=== PATIENT | male | born 1990 | race Caucasian/White ===

== ENCOUNTER 2025-02-01 23:09 | Emergency (ER) | payer SELFPAY ==
[2025-02-01 23:15] VITALS: BP 131/73; PULSE 88; RESP 16; TEMP 36.7; O2SAT 99
--- NOTE | 2025-02-02 00:33 | CTR_ITS ---
PROCEDURE INFORMATION: Exam: CT Head Without Contrast Exam date and time: 02/02/2025 12:38 AM Age: 34 years old Clinical indication: Injury or trauma; Fall; Blunt trauma (contusions or hematomas); Additional info: Headache post trauma (3 days ago), nausea, fall TECHNIQUE: Imaging protocol: Computed tomography of the head without contrast. Radiation optimization: All CT scans at this facility use at least one of these dose optimization techniques: automated exposure control; mA and/or kV adjustment per patient size (includes targeted exams where dose is matched to clinical indication); or iterative reconstruction. COMPARISON: No relevant prior studies available. RADIATION DOSE METRICS: Total DLP (mGy-cm): 2453.63 FINDINGS: Brain: No acute intracranial hemorrhage, cerebral edema, or midline shift. Cerebral ventricles: No hydrocephalus. Paranasal sinuses: There is no acute sinusitis. Mastoid air cells: Visualized mastoid air cells are well aerated. Orbital cavities: The visualized orbits appear unremarkable. Bones: Unremarkable. No acute fracture. Soft tissues: Unremarkable. CT/CT head wo con* [id number] IMPRESSION: No acute intracranial abnormality.
[2025-02-02] MEDS: diphenhydrAMINE 50 mg/mL SDV 1mL IVP (00:59)
[2025-02-02] MEDS: sodium chloride 0.9% 1,000 ML 999 ML IV (00:59)
[2025-02-02] MEDS: prochlorperazine 10 mg/2 mL Inj IV (00:59)
[2025-02-02 03:23] VITALS: BP 118/76; PULSE 76; O2SAT 98
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
== END 2025-02-02 03:25 | disposition home or self-care (01) ==
PROVIDERS: Emergency Provider Student in an Organized Health Care Education/Training Program
DX: S06.0X0A Concussion without loss of consciousness, initial encounter (principal); W01.198A Fall on same level from slipping, tripping and stumbling with subsequent striking against other object, initial encounter
CPT/HCPCS: 70450; 96374; 96375; 99285; J0780; J1200; J7030

== ENCOUNTER 2025-02-27 21:30 | Emergency (ER) | payer SELFPAY ==
[2025-02-27 21:40] VITALS: BP 102/63; PULSE 55; RESP 17; TEMP 36.7; O2SAT 100; BMI 18.3
--- OUTSIDE RECORDS SUMMARY | 2025-02-27 21:40 | XMS_ITS | Clinical Summary ---
Author Organization [facility] Address [address] [place]: Epic Prelude ADT [place] [address] Care Team Providers Care [employer] Manager Name Role Phone Rudi Magaña MD Primary Care Provider [phone] Allergies No known active allergies Medications busPIRone (BUSPAR) 10 mg tablet Take 10 mg by mouth daily. Active sertraline (ZOLOFT) 25 mg tablet Take 25 mg by mouth daily. Active Active Problems Problem Noted Date Diagnosed Date Inguinal lymphadenopathy 08/21/2016 Abscess of groin, left 08/21/2016 Encounters Date Type Department Care Team Description 01/28/2025 12:57 AM CDT - 01/28/2025 1:46 AM CDT Emergency [facility] [address] [place] [address] Facial laceration, initial encounter (Primary Dx) Discharge Disposition: Home or Self Care 01/28/2025 Travel from Last 3 Months Immunizations Immunization Administration Dates Next Due (ADACEL/BOOSTRIX)(10 YR UP) TDAP VACCINE, 0.5ML, IM 01/28/2025 Family History Medical History Relation Name Comments Heart Attack Father Hypertension Father Breast Cancer Mother Relation Name Status Comments Father Mother Social History Tobacco Use Types Packs/Day Years Used Date Smoking Tobacco: Some Days Cigarettes Smokeless Tobacco: Current Tobacco Cessation:Ready to Q uit: Not Asked; Counseling Given: Not Answered Alcohol Use Standard Drinks/Week Comments Yes 0 (1 standard drink = 0.6 oz pur e alcohol) Feeling Safe Answer Date Recorded Are you in a relationship wi th someone who hurts you emotionally and/or physically? 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 Gender Identity Not on file Sexual Orientation Not on file Last Filed Vital Signs Vital Sign Reading Time Taken Comments Blood Pressure 117/84 01/28/2025 1:00 AM CDT Pulse 73 01/28/2025 1:00 AM CDT Temperature 36.2 C (97.2 F) 01/28/2025 12:51 AM CDT Respiratory Rate 16 01/28/2025 1:00 AM CDT Oxygen Saturation 100% 01/28/2025 1:00 AM CDT Inhaled Oxygen Concentration - - Weight 66 kg (145 lb 9.6 oz) 01/28/2025 12:51 AM CDT Height 195.6 cm (6' 5 ) 01/28/2025 12:51 AM CDT Body Mass Index 17.27 01/28/2025 12:51 AM CDT Plan of Treatment Health Maintenance Due Date Last Done Comments HEPATITIS B VACCINES (1 of 3 - 19+ 3-dose series) 2010 INFLUENZA VACCINE (#1) 2024 DTAP/TDAP/TD VACCINES (3 - Td or Tdap) 01/28/2035 01/28/2025, 1991 HPV VACCINES Aged Out No longer eligi ble based on patient's age to complete this topic Care Teams [employer] Manager Relationship Specialty Start Date End Date Rudi Magaña MD [address] [place] [address] PCP - General Family Practice 08/21/16
[2025-02-27 22:22] VITALS: BP 119/76; O2SAT 97
--- NOTE | 2025-02-27 22:29 | CTR_ITS ---
PROCEDURE INFORMATION: Exam: CT Lumbar Spine Without Contrast Exam date and time: 02/27/2025 11:12 PM Age: 34 years old Clinical indication: Injury or trauma; Weakness; Blunt trauma (contusions or hematomas); C/O mid/low back pain with lle parasthesia and incontinence after multiple falls over the last three weeks. ; Additional info: Low back pain/incontinence TECHNIQUE: Imaging protocol: Computed tomography of the lumbar spine without contrast. Radiation optimization: All CT scans at this facility use at least one of these dose optimization techniques: automated exposure control; mA and/or kV adjustment per patient size (includes targeted exams where dose is matched to clinical indication); or iterative reconstruction. COMPARISON: CT thoracic spin wo con* [id number] 02/27/2025 11:08 PM RADIATION DOSE METRICS: Total DLP (mGy-cm): 1065.32 FINDINGS: Bones/joints: No acute fracture. Normal alignment. No significant disc bulge or herniation. No severe spinal canal stenosis. No significant neural foraminal narrowing. Soft tissues: Unremarkable. CT/CT lumbar spine wo con* [id number] IMPRESSION: No acute lumbar spine fracture.
--- NOTE | 2025-02-27 22:29 | CTR_ITS ---
PROCEDURE INFORMATION: Exam: CT Thoracic Spine Without Contrast Exam date and time: 02/27/2025 11:08 PM Age: 34 years old Clinical indication: Injury or trauma; Weakness; Blunt trauma (contusions or hematomas); C/O mid/low back pain with lle parasthesia and incontinence after multiple falls over the last three weeks. ; Additional info: Back pain/incontinence TECHNIQUE: Imaging protocol: Computed tomography of the thoracic spine without contrast. Radiation optimization: All CT scans at this facility use at least one of these dose optimization techniques: automated exposure control; mA and/or kV adjustment per patient size (includes targeted exams where dose is matched to clinical indication); or iterative reconstruction. COMPARISON: CT cervical spin wo con* [id number] 02/27/2025 11:06 PM RADIATION DOSE METRICS: Total DLP (mGy-cm): 1260.47 FINDINGS: Bones/joints: No acute fracture. Normal alignment. No significant disc bulge or herniation. No severe spinal canal stenosis. No significant neural foraminal narrowing. Soft tissues: Unremarkable. CT/CT thoracic spin wo con* [id number] IMPRESSION: No acute thoracic spine fracture.
[2025-02-27] MEDS: dexamethasone 10 mg/mL INJ IVP (22:40)
--- NOTE | 2025-02-27 22:51 | CTR_ITS ---
PROCEDURE INFORMATION: Exam: CT Head Without Contrast Exam date and time: 02/27/2025 11:04 PM Age: 34 years old Clinical indication: Injury or trauma; Blunt trauma (contusions or hematomas); Weakness, extremity; Left; C/O mid/low back pain with lle parasthesia and incontinence after multiple falls over the last three weeks. ; Additional info: Lle paresthesias, ankle clonus, incontinence TECHNIQUE: Imaging protocol: Computed tomography of the head without contrast. Radiation optimization: All CT scans at this facility use at least one of these dose optimization techniques: automated exposure control; mA and/or kV adjustment per patient size (includes targeted exams where dose is matched to clinical indication); or iterative reconstruction. COMPARISON: CT head wo con* [id number] 02/02/2025 12:38 AM RADIATION DOSE METRICS: Total DLP (mGy-cm): 1116.51 FINDINGS: Brain: Normal. No hemorrhage. Unremarkable white matter. No mass effect. Cerebral ventricles: No ventriculomegaly. Paranasal sinuses: Visualized sinuses are unremarkable. No fluid levels. Mastoid air cells: Visualized mastoid air cells are well aerated. Bones: Unremarkable. No acute fracture. Soft tissues: Unremarkable. CT/CT head wo con* [id number] IMPRESSION: No acute intracranial abnormality.
--- NOTE | 2025-02-27 22:51 | ED_ITS ---
Documented by User: WALTER Tucker 02/28/25 00:27 HPI - Back Pain/Injury 2 General: Chief Complaint: Back Pain/Injury Stated Complaint: fall back injured Time Seen by Provider: 02/27/25 22:02 Source: patient Mode of arrival: wheelchair Limitations: no limitations History of Present Illness: Patient is a 34-year-old male who presents to the emergency department due to lower back pain as well as neurologic symptoms. This patient was seen here in the emergency department earlier this month for a head injury, diagnosed with a postconcussive state and discharged at that time. He states that since then he has been foggy and had issues ambulating as well as ataxia. Last night he had a fall, he states that this was secondary to drinking as well as to some worsening left lower extremity numbness and intermittent paralysis. With the fall he hit his back, and has also had incidences of bladder incontinence. He notes that this morning he woke up and he had urinated himself, no bowel incontinence at this time. He has had increasing difficulty with ambulating, and notes that the low back pain has steadily worsened and feels like it is in my spine. Denies a history of IV drug use. No fevers. No history of cancer. No prolonged history of steroid use. His vitals are stable at this time, though he is intermittently shaking to the bilateral lower extremities. He is not reporting any saddle anesthesia. MD elicited complaint: back pain, back injury and fall Pertinent past history: recent trauma, neurological deficit and incontinence Onset (ago): day(s) Timing: constant and progressively worsening Similar Symptoms Previously: No Location: lumbar spine and thoracic spine Radiation: none Context: fall and trauma Associated symptoms: Reports difficulty walking; Deny abdominal pain, fecal incontinence, fever(s) or syncope Related Data Allergies Allergy/AdvReac Type Severity Reaction Status Date / Time No Known Allergies Allergy Verified 02/01/25 23:20 Review of Systems 2 General: Reports: 10 or more systems reviewed and unremarkable except in HPI and below Const: Reports: other (reports fall); Denies: fever(s), change in weight or night sweats Card: Denies: chest pain, lightheadedness or syncope Resp: Denies: dyspnea GI: Denies: abdominal pain or fecal incontinence : Reports: urinary incontinence Musc: Reports: back pain; Denies: neck pain or extremity pain Skin/Breast: Denies: rash or skin pain Neuro: Reports: numbness in extremities, weakness in extremities, sensory changes, difficulty walking, frequent falls and involuntary movements; Denies: headache(s) or lack of coordination Physical Exam 2 Const: COMMON NORMALS: patient oriented x3, no limitations and alert N UTRITIONAL APPEARANCE: thin OTHER: Intermittent tremulousness of his lower extremities HENMT: OTHER: Abrasion to upper lip Eye: COMMON NORMALS: Equal, round and reactive pupils present and EOMs intact bilaterally PUPIL: Yes Equal, round and reactive pupils present Neck/C-Spine: COMMON NORMALS: full ROM, supple and no meningeal signs C ERVICAL SPINE: Yes cervical ROM normal and Yes normal cervical lordosis Resp: COMMON NORMALS: normal respiratory effort, No retractions, No use of accessory muscles and clear to auscultation bilaterally AUSCULTATION: clear to auscultation bilaterally Cardio: COMMON NORMALS: regular rate, regular rhythm, S1 normal heart sound present and S2 normal heart sound present RATE: regular rate RHYTHM: r egular rhythm HEART SOUNDS: S1 normal heart sound present and S2 normal heart sound present Back/Pelvis: OTHER: Normal visual examination. Spinous process tenderness to palpation of the thoracic and lumbar spine without step-off deformity. No perimuscular tenderness to palpation of the back. Extremity: COMMON NORMALS: normal to inspection and full ROM Neuro: COMMON NORMALS: patient oriented x3, moves all extremities, no sensory deficits noted, deep tendon reflexes 2+ bilaterally and gait normal S ENSORIUM/ORIENTATION: Yes alert MENINGEAL SIGNS: Yes no meningeal signs G AIT: Yes Unable to assess gait MOTOR EXAM: 5/5 motor strength present throughout, Normal motor muscle tone present throughout and Motor abnormalites present myoclonus (Ankle clonus) PLANTAR REFLEX: downgoing: bilateral O THER: L3, L4, L5, and S1 nerve sensations intact. No saddle anesthesia. Skin: COMMON NORMALS: no rashes or lesions noted GENERAL SKIN EXAM: no rashes or lesions noted Course 2 Vital Signs: Vital signs: Vital Signs Temperature 98.0 F 02/27/25 21:40 Pulse Rate 55 L 02/27/25 21:40 Respiratory Rate 17 02/27/25 21:40 Blood Pressure 119/76 02/27/25 22:22 Pulse Oximetry 97 02/27/25 22:22 Oxygen Delivery Me thod Room Air 02/27/25 21:40 MDM - Back Pain/Injury Medical Decision Making This patient presented for complaints of worsening ataxia, and more specifically a fall that occurred last night after drinking. Arrives stating he is having 10/10 lower back pain, has having some intermittent paresthesias and paralysis of his left lower extremity as well as periods of tremulousness bilaterally. He notes that he has had some episodes of incontinence as well, on exam there was bilateral ankle clonus, worse on the left. There is some reproducible tenderness to palpation of the lumbar spine without step-off deformity or perimuscular tenderness. Gait unable to be assessed, however noted to be ataxic by family getting into the emergency room. He had no history of IV drug use. His labs are normal, CT head down to lumbar spine unremarkable. With his unusual presentation and neurological deficits, I still have concern of potential spinal cord etiology, he was preemptively given 10 mg of Decadron through the IV and I consulted with Dr. Ceballos, ER physician at [facility], who kindly accepts the patient to receive urgent MRI. Patient will transfer via S. He has had no episodes of incontinence here, and no incontinence of stool. He had no reports of saddle anesthesia. Reported that he has had continued episodes of intermittent tremulousness, he does not appear encephalopathic and his urine drug screen was negative. Labs 02/27/25 22:54 02/27/25 22:54 Radiology Impressions Lumbar Spine CT 02/27/25 22:29 IMPRESSION: No acute lumbar spine fracture. Thoracic Spine CT 02/27/25 22:29 IMPRESSION: No acute thoracic spine fracture. Cervical Spine CT 02/27/25 22:51 IMPRESSION: No acute cervical spine fracture. Head CT 02/27/25 22:51 IMPRESSION: No acute intracranial abnormality. Laboratory Results WBC 8.97 10^3/uL (3.29-11.43) 02/27/25 22:54 RBC 4.21 10^6/uL (3.85-5.65) 02/27/25 22:54 Hgb 14.00 g/dL (11.27-16.99) 02/27/25 22:54 Hct 41.6 % (37-53) 02/27/25 22:54 MCV 98.8 fl (82-101) 02/27/25 22:54 MCH 33.3 pg (27-33) H 02/27/25 22:54 MCHC 33.7 g/dL (30-55) 02/27/25 22:54 RDW 13.3 % (12.1-15.1) 02/27/25 22:54 Plt Count 238 10^3/cmm (157-399) 02/27/25 22:54 MPV 10.3 fL (7.4-10.4) 02/27/25 22:54 Neut % (Auto) 52.7 % 02/27/25 22:54 Lymph % (Auto) 37.1 % 02/27/25 22:54 Childress % (Auto) 7.5 % 02/27/25 22:54 Eos % (Auto) 1.7 % 02/27/25 22:54 Baso % (Auto) 0.8 % 02/27/25 22:54 Neut # (Auto) 4.73 10^3/uL (1.8-7.7) 02/27/25 22:54 Lymph # (Auto) 3.3 10^3/uL (0.8-4.8) 02/27/25 22:54 Childress # (Auto) 0.7 10^3/uL (0.2-0.9) 02/27/25 22:54 Eos # (Auto) 0.2 10^3/uL (0.0-0.8) 02/27/25 22:54 Baso # (Auto) 0.1 10^3/uL (0.0-0.1) 02/27/25 22:54 Nucleated RBC % (auto) 0 % 02/27/25 22:54 Nucleated RBCs # 0.0 /100WBC 02/27/25 22:54 Sodium 140 mmol/L (136-145) 02/27/25 22:54 Potassium 4.1 mmol/L (3.5-5.1) 02/27/25 22:54 Chloride 101 mmol/L (98-107) 02/27/25 22:54 Carbon Dioxide 27 mmol/L (22-29) 02/27/25 22:54 Anion Gap 16.1 (5-19) 02/27/25 22:54 BUN 9 mg/dL (6-20) 02/27/25 22:54 Creatinine 0.8 mg/dL (0.7-1.2) 02/27/25 22:54 GFR Calculation 111.3 mL/min (90-130) 02/27/25 22:54 Glucose 86 mg/dL (65-115) 02/27/25 22:54 Calculated Osmolality 288 mOsm/kg (285-295) 02/27/25 22:54 Calcium 8.8 mg/dL (8.5-10.5) 02/27/25 22:54 Total Bilirubin 0.2 mg/dL (0.15-1.2) 02/27/25 22:54 AST 20 U/L (0-40) 02/27/25 22:54 ALT 12 U/L (0-41) 02/27/25 22:54 Alkaline Phosphatase 75 U/L (40-130) 02/27/25 22:54 Total Protein 7.2 g/dL (6.6-8.7) 02/27/25 22:54 Albumin 4.2 g/dL (3.5-5.2) 02/27/25 22:54 Globulin 3.0 g/dL (1.3-4.6) 02/27/25 22:54 Urine Opiates Screen Negative ng/mL (Negative) 02/27/25 22:57 Ur Barbiturates Screen Negative ng/mL (Negative) 02/27/25 22:57 Ur Phencyclidine Scrn Negative ng/mL (Negative) 02/27/25 22:57 Ur Amphetamines Screen Negative ng/mL (Negative) 02/27/25 22:57 U Benzodiazepines Scrn Negative ng/mL (Negative) 02/27/25 22:57 Urine Cocaine Screen Negative ng/mL (Negative) 02/27/25 22:57 U Marijuana (THC) Screen Negative ng/mL (Negative) 02/27/25 22:57 All radiology interpretation(s) finalized by discharge Discharge Plan Discharge Patient Disposition: Xfer Short-Term Hosp Clinical Impression: Left leg paresthesias, Ataxia Bladder incontinence Qualifiers: Urinary Incontinence type: unspecified incontinence Qualified Code(s): R32 - Unspecified urinary incontinence Low back pain Qualifiers: Chronicity: acute Back pain laterality: midline Sciatica presence: without sciatica Qualified Code(s): M54.50 - Low back pain, unspecified Condition: Stable Referrals: Bren Bhardwaj NP [Primary Care Provider, Unknown] Print Language: Anguillan Coding Level of Care Code ED Manager Quality Systems for Chg Fwd Documented by User: Chaitanya Mayer, 02/28/25 00:32 HPI - Back Pain/Injury 2 General: Chief Complaint: Back Pain/Injury Stated Complaint: fall back injured Time Seen by Provider: 02/27/25 22:02 Related Data Allergies Allergy/AdvReac Type Severity Reaction Status Date / Time No Known Allergies Allergy Verified 02/01/25 23:20 Course 2 Vital Signs: Vital signs: Vital Signs Temperature 98.0 F 02/27/25 21:40 Pulse Rate 55 L 02/27/25 21:40 Respiratory Rate 17 02/27/25 21:40 Blood Pressure 119/76 02/27/25 22:22 Pulse Oximetry 97 02/27/25 22:22 Oxygen Delivery Me thod Room Air 02/27/25 21:40 MDM - Back Pain/Injury Medical Decision Making This patient presented for complaints of worsening ataxia, and more specifically a fall that occurred last night after drinking. Arrives stating he is having 10/10 lower back pain, has having some intermittent paresthesias and paralysis of his left lower extremity as well as periods of tremulousness bilaterally. He notes that he has had some episodes of incontinence as well, on exam there was bilateral ankle clonus, worse on the left. There is some reproducible tenderness to palpation of the lumbar spine without step-off deformity or perimuscular tenderness. Gait unable to be assessed, however noted to be ataxic by family getting into the emergency room. He had no history of IV drug use. His labs are normal, CT head down to lumbar spine unremarkable. With his unusual presentation and neurological deficits, I still have concern of potential spinal cord etiology, he was preemptively given 10 mg of Decadron through the IV and I consulted with Dr. Ceballos, ER physician at [facility], who kindly accepts the patient to receive urgent MRI. Patient will transfer via S. He has had no episodes of incontinence here, and no incontinence of stool. He had no reports of saddle anesthesia. Reported that he has had continued episodes of intermittent tremulousness, he does not appear encephalopathic and his urine drug screen was negative. This patient was originally seen by Mr. Yvrose PA-C. I agree with his history, evaluation, and management. Labs 02/27/25 22:54 02/27/25 22:54 Radiology Impressions Lumbar Spine CT 02/27/25 22:29 IMPRESSION: No acute lumbar spine fracture. Thoracic Spine CT 02/27/25 22:29 IMPRESSION: No acute thoracic spine fracture. Cervical Spine CT 02/27/25 22:51 IMPRESSION: No acute cervical spine fracture. Head CT 02/27/25 22:51 IMPRESSION: No acute intracranial abnormality. Laboratory Results WBC 8.97 10^3/uL (3.29-11.43) 02/27/25 22:54 RBC 4.21 10^6/uL (3.85-5.65) 02/27/25 22:54 Hgb 14.00 g/dL (11.27-16.99) 02/27/25 22:54 Hct 41.6 % (37-53) 02/27/25 22:54 MCV 98.8 fl (82-101) 02/27/25 22:54 MCH 33.3 pg (27-33) H 02/27/25 22:54 MCHC 33.7 g/dL (30-55) 02/27/25 22:54 RDW 13.3 % (12.1-15.1) 02/27/25 22:54 Plt Count 238 10^3/cmm (157-399) 02/27/25 22:54 MPV 10.3 fL (7.4-10.4) 02/27/25 22:54 Neut % (Auto) 52.7 % 02/27/25 22:54 Lymph % (Auto) 37.1 % 02/27/25 22:54 Childress % (Auto) 7.5 % 02/27/25 22:54 Eos % (Auto) 1.7 % 02/27/25 22:54 Baso % (Auto) 0.8 % 02/27/25 22:54 Neut # (Auto) 4.73 10^3/uL (1.8-7.7) 02/27/25 22:54 Lymph # (Auto) 3.3 10^3/uL (0.8-4.8) 02/27/25 22:54 Childress # (Auto) 0.7 10^3/uL (0.2-0.9) 02/27/25 22:54 Eos # (Auto) 0.2 10^3/uL (0.0-0.8) 02/27/25 22:54 Baso # (Auto) 0.1 10^3/uL (0.0-0.1) 02/27/25 22:54 Nucleated RBC % (auto) 0 % 02/27/25 22:54 Nucleated RBCs # 0.0 /100WBC 02/27/25 22:54 Sodium 140 mmol/L (136-145) 02/27/25 22:54 Potassium 4.1 mmol/L (3.5-5.1) 02/27/25 22:54 Chloride 101 mmol/L (98-107) 02/27/25 22:54 Carbon Dioxide 27 mmol/L (22-29) 02/27/25 22:54 Anion Gap 16.1 (5-19) 02/27/25 22:54 BUN 9 mg/dL (6-20) 02/27/25 22:54 Creatinine 0.8 mg/dL (0.7-1.2) 02/27/25 22:54 GFR Calculation 111.3 mL/min (90-130) 02/27/25 22:54 Glucose 86 mg/dL (65-115) 02/27/25 22:54 Calculated Osmolality 288 mOsm/kg (285-295) 02/27/25 22:54 Calcium 8.8 mg/dL (8.5-10.5) 02/27/25 22:54 Total Bilirubin 0.2 mg/dL (0.15-1.2) 02/27/25 22:54 AST 20 U/L (0-40) 02/27/25 22:54 ALT 12 U/L (0-41) 02/27/25 22:54 Alkaline Phosphatase 75 U/L (40-130) 02/27/25 22:54 Total Protein 7.2 g/dL (6.6-8.7) 02/27/25 22:54 Albumin 4.2 g/dL (3.5-5.2) 02/27/25 22:54 Globulin 3.0 g/dL (1.3-4.6) 02/27/25 22:54 Urine Opiates Screen Negative ng/mL (Negative) 02/27/25 22:57 Ur Barbiturates Screen Negative ng/mL (Negative) 02/27/25 22:57 Ur Phencyclidine Scrn Negative ng/mL (Negative) 02/27/25 22:57 Ur Amphetamines Screen Negative ng/mL (Negative) 02/27/25 22:57 U Benzodiazepines Scrn Negative ng/mL (Negative) 02/27/25 22:57 Urine Cocaine Screen Negative ng/mL (Negative) 02/27/25 22:57 U Marijuana (THC) Screen Negative ng/mL (Negative) 02/27/25 22:57 Discharge Plan Discharge Patient Disposition: Xfer Short-Term Hosp Clinical Impression: Left leg paresthesias, Ataxia Bladder incontinence Qualifiers: Urinary Incontinence type: unspecified incontinence Qualified Code(s): R32 - Unspecified urinary incontinence Low back pain Qualifiers: Chronicity: acute Back pain laterality: midline Sciatica presence: without sciatica Qualified Code(s): M54.50 - Low back pain, unspecified Condition: Stable Referrals: Bren Bhardwaj NP [Primary Care Provider, Unknown] Print Language: Anguillan Coding Level of Care Code ED Manager Quality Systems for Quinton Nicole
--- NOTE | 2025-02-27 22:51 | CTR_ITS ---
PROCEDURE INFORMATION: Exam: CT Cervical Spine Without Contrast Exam date and time: 02/27/2025 11:06 PM Age: 34 years old Clinical indication: Injury or trauma; Weakness; Blunt trauma; C/O mid/low back pain with lle parasthesia and incontinence after multiple falls over the last three weeks. ; Additional info: Pain, neurologic SX TECHNIQUE: Imaging protocol: Computed tomography of the cervical spine without contrast. Radiation optimization: All CT scans at this facility use at least one of these dose optimization techniques: automated exposure control; mA and/or kV adjustment per patient size (includes targeted exams where dose is matched to clinical indication); or iterative reconstruction. COMPARISON: CT head wo con* [id number] 02/27/2025 11:04 PM RADIATION DOSE METRICS: Total DLP (mGy-cm): 180.25 FINDINGS: Bones: Mild kyphosis which may be secondary to patient positioning and/or muscle spasm. Auditory system: Exam limitation secondary to artifact from one or more metallic earrings. Lungs: Lung apices are normal. Soft tissues: See Bones finding. CT/CT cervical spin wo con* [id number] IMPRESSION: No acute cervical spine fracture.
[2025-02-27 23:04] LABS: Basophils # 0.1 10^3/uL (0.0-0.1); Basophils % 0.8 %; Eosinophils # 0.2 10^3/uL (0.0-0.8); Eosinophils % 1.7 %; Hematocrit 41.6 % (37-53); Lymphocytes # 3.3 10^3/uL (0.8-4.8); Lymphocytes % 37.1 %; Mean Corpuscular HGB Conc 33.7 g/dL (30-55); Mean Corpuscular Hemoglobin 33.3 pg (27-33); Mean Corpuscular Volume 98.8 fl (82-101); Mean Platelet Volume 10.3 fL (7.4-10.4); Monocytes # 0.7 10^3/uL (0.2-0.9); Monocytes % 7.5 %; Neutrophils # 4.73 10^3/uL (1.8-7.7); Neutrophils % 52.7 %; Nucleated Red Blood Cells % 0 %; Platelet Count 238 10^3/cmm (157-399); Red Blood Count 4.21 10^6/uL (3.85-5.65); Red Cell Distribution Width 13.3 % (12.1-15.1); White Blood Count 8.97 10^3/uL (3.29-11.43)
[2025-02-27 23:15] LABS: Amphetamines Screen Urine Negative (Negative); Barbiturates Screen Urine Negative (Negative); Benzodiazepines Screen Urine Negative (Negative); Cocaine Screen Urine Negative (Negative); Opiate Screen Urine Negative (Negative); PCP Screen Urine Negative (Negative); THC Screen Urine Negative (Negative)
[2025-02-27 23:23] LABS: Alanine Aminotransferase 12 U/L (0-41); Albumin Level 4.2 g/dL (3.5-5.2); Alkaline Phosphatase 75 U/L (40-130); Anion Gap 16.1 (5-19); Aspartate Amino Transferase 20 U/L (0-40); Blood Urea Nitrogen 9 mg/dL (6-20); Calcium 8.8 mg/dL (8.5-10.5); Carbon Dioxide 27 mmol/L (22-29); Chloride 101 mmol/L (98-107); Glomerular Filtration Rate 111.3 mL/min (90-130); Glucose 86 mg/dL (65-115); Osmolality Calculated 288 mOsm/kg (285-295); Potassium 4.1 mmol/L (3.5-5.1); Sodium 140 mmol/L (136-145); Total Bilirubin 0.2 mg/dL (0.15-1.2); Total Protein 7.2 g/dL (6.6-8.7)
[2025-02-28] MEDS: nicotine 21 mg Patch 1 PATCH TRANSDERMA (00:42)
[2025-02-28] MEDS: HYDROcodone-acetaminophen 7.5-325 mg Tablet 1 TAB PO (00:42)
[2025-02-28 00:44] VITALS: BP 108/79; PULSE 66; O2SAT 97
--- NOTE | 2025-02-28 00:45 | PC.NURSE ---
Report called to [facility] nurse Carlos, denied further questions.
[2025-02-28 01:30] VITALS: BP 101/76; PULSE 68; O2SAT 98
== END 2025-02-28 01:30 | disposition short-term general hospital (02) ==
PROVIDERS: Emergency Provider Physician Assistant; PCP Nurse Practitioner Family
DX: R20.2 Paresthesia of skin (principal); R27.0 Ataxia, unspecified; R32 Unspecified urinary incontinence; M54.50 Low back pain, unspecified
CPT/HCPCS: 36415; 70450; 72125; 72128; 72131; 80053; 80306; 85025; 96374; 99285; J1100; J9999